=== PATIENT | female | born 1975 | race Caucasian/White ===

== ENCOUNTER 2022-02-07 13:28 | Outpatient (CLI) | payer BC | END 2022-02-07 13:29 | disposition home or self-care (01) | LOC: CSHMAMMO 13:28 | PROVIDERS: ATTEND Family Medicine | DX: Z12.31 Encounter for screening mammogram for malignant neoplasm of breast (principal) | CPT/HCPCS: 77063; 77067 ==

== ENCOUNTER 2022-12-24 05:56 | Day surgery (SDC) | payer BC ==
[2022-12-21 14:06] VITALS: BMI 23.2
[2022-12-24] MEDS ORDERED: PROPOFOL 40 ML ONE (06:58)
[2022-12-24] MEDS ORDERED: Lidocaine 1% PF 5 ML VIAL ONE (06:58)
[2022-12-24] MEDS ORDERED: PROPOFOL 20 ML ONE ×2 (07:57→08:09)
== END 2022-12-24 09:09 | disposition home or self-care (01) ==
LOC: CSHSDC 05:56
PROVIDERS: ATTEND Internal Medicine Gastroenterology
PROC: 0DJD8ZZ Inspection of Lower Intestinal Tract, Via Natural or Artificial Opening Endoscopic (ICD-10-PCS; principal; 2022-12-24)
DX: Z12.11 Encounter for screening for malignant neoplasm of colon (principal); K64.8 Other hemorrhoids; D50.9 Iron deficiency anemia, unspecified; Z88.6 Allergy status to analgesic agent
CPT/HCPCS: J2704

== ENCOUNTER 2023-02-08 13:15 | Outpatient (CLI) | payer BC | END 2023-02-08 13:16 | disposition home or self-care (01) | LOC: CSHMAMMO 13:15 | PROVIDERS: ATTEND Obstetrics & Gynecology | DX: Z12.31 Encounter for screening mammogram for malignant neoplasm of breast (principal) | CPT/HCPCS: 77063; 77067 ==

== ENCOUNTER 2024-02-28 09:12 | Outpatient (CLI) | payer BC | END 2024-02-28 09:13 | disposition home or self-care (01) | LOC: CSHMAMMO 09:12 | PROVIDERS: ATTEND Obstetrics & Gynecology | DX: N64.89 Other specified disorders of breast (principal) | CPT/HCPCS: G0279 ==